=== PATIENT | male | born 1970 | race African-American/Black ===

== ENCOUNTER → 2018-02-09 | Day surgery (SDC) | payer OTHER ==
[2018-02-08 16:59] LABS: BASOPHILS # (AUTO) 0.1 (0.0-0.1); BASOPHILS % 0.8 % (0.0-1.0); EOSINOPHILS # (AUTO) 0.2 (0.0-0.4); EOSINOPHILS % 3.8 % (0.0-6.0); HEMATOCRIT 41.4 % (38.2-49.6); HEMOGLOBIN 13.3 g/dL (14.0-18.0); MEAN CORPUSCULAR HEMOGLOBIN 26.2 pg (28-32); MEAN CORPUSCULAR HGB CONC 32.1 g/dL (31-35); MEAN CORPUSCULAR VOLUME 81.5 fL (81-99); MONOCYTES # (AUTO) 0.7 (0.2-0.8); MONOCYTES % 10.5 % (4.4-11.3); NEUTROPHILS # (AUTO) 3.3 (2.1-6.9); NEUTROPHILS % 52.7 % (38.7-80.0); PLATELET COUNT 231 x10e3/uL (140-360); RED BLOOD COUNT 5.08 x10e6/uL (4.3-5.7)
[2018-02-08 17:19] LABS: ALANINE AMINOTRANSFERASE 17 IU/L (0-55); ALBUMIN 3.5 g/dL (3.5-5.0); ALBUMIN/GLOBULIN RATIO 0.9 (0.8-2.0); ALKALINE PHOSPHATASE 61 IU/L (40-150); ANION GAP 12.2 mmol/L (8-16); BLOOD UREA NITROGEN 11 mg/dL (7-26); BUN/CREATININE RATIO 13 (6-25); CALCIUM 9.2 mg/dL (8.4-10.2); CARBON DIOXIDE 28 mmol/L (22-29); CHLORIDE 104 mmol/L (98-107); CHOL/HDL RATIO 4.2 (3.9-4.7); CHOLESTEROL 198 MD/DL (0-199); CREATININE, SERUM 0.85 mg/dL (0.72-1.25); EST GLOMERULAR FILTRATION RATE > 60 ML/MIN (60-); GLUCOSE 92 mg/dL (74-118); HDL CHOLESTEROL 47 MG/DL (40-60); LDL CHOLESTEROL 135 MG/DL (60-130); POTASSIUM 4.2 mmol/L (3.5-5.1); SODIUM 140 mmol/L (136-145); TRIGLYCERIDES 79 MG/DL (0-149)
[~2018-02-09] VITALS: Ht 180.3 cm; Wt 123.4 kg
[2018-02-09 06:59] VITALS: BP 131/83
[2018-02-09 10:27] VITALS: BP 119/76
--- NOTE | 2018-02-12 08:51 | Operative Report ---
DATE OF PROCEDURE: February 09, 2018 INDICATIONS: Coronary artery disease with abnormal treadmill stress test. PROCEDURES PERFORMED 1. Left heart catheterization, selective coronary angiography. 2. Deployment of right wrist transradial band. COMPLICATIONS: None. RECOMMENDATIONS: Medical therapy. Access was obtained in the right radial artery. A 5-German sheath was placed. Diagnostic coronary angiogram revealed no angiographic coronary artery disease. Excellent flow in all vessels. No critical stenosis or occlusions were noted. Right wrist TR band applied. Patient discharged home same day. Job#: [id number]
== END | disposition home or self-care (01) ==
LOC: EDBD 08:00 → CATH LAB 09:04
PROVIDERS: ATTEND Internal Medicine Interventional Cardiology
DX: I25.119 Atherosclerotic heart disease of native coronary artery with unspecified angina pectoris (principal); I25.2 Old myocardial infarction; R94.39 Abnormal result of other cardiovascular function study; R00.1 Bradycardia, unspecified; Z01.812 Encounter for preprocedural laboratory examination; Z68.37 Body mass index [BMI] 37.0-37.9, adult; Z82.49 Family history of ischemic heart disease and other diseases of the circulatory system
CPT/HCPCS: 36140; 36415; 77002; 80053; 80061; 85025; 93458

== ENCOUNTER → 2018-03-27 | Outpatient (CLI) | payer OTHER ==
--- NOTE | 2018-03-27 19:52 | Diagnostic Imaging Report ---
PROCEDURE: CT CHEST WITHOUT CONTRAST CT scan of the chest WITHOUT intravenous contrast, using standard protocol. TECHNIQUE: The chest was scanned utilizing a multidetector helical scanner from the apex to the level of the adrenal glands. No IV contrast was administered per physician's request. Coronal and sagittal multiplanar reformations were obtained. COMPARISON: None. INDICATIONS: LEFT SIDE CHEST PRESSURE FOR 1 YEAR FINDINGS: Lines/tubes: None. Lungs and Airways: The lungs and airways are normal with no focal abnormality. No nodules, opacities, masses, or consolidation. Airways are clear, without endobronchial lesions. Pleura: The pleural spaces are clear. No effusion, or pneumothorax. Heart and mediastinum: The thyroid gland is normal. The heart size is normal. No pericardial effusion. Aorta is non-aneurysmal. Main pulmonary artery is normal in caliber. Lymph nodes: No mediastinal, hilar, or axillary adenopathy. Abdomen: Limited views of the upper abdomen show no abnormality within the visualized liver, spleen, pancreas, or kidneys. The adrenal glands are unremarkable. Bones and soft tissues: Mild degenerative disc changes in the thoracic spine. Mild bilateral gynecomastia, right greater than left. IMPRESSION: 1. Essentially unremarkable noncontrast chest CT. 2. Mild gynecomastia, right greater than left. Jose Ely M.D. Dictated by: Jose Ely M.D. on 03/27/2018 at 19:54 Electronically approved by: Jose Ely M.D. on 03/27/2018 at 19:54
== END ==
LOC: CT 13:18
PROVIDERS: ATTEND Internal Medicine Interventional Cardiology
DX: R07.9 Chest pain, unspecified (principal)
CPT/HCPCS: 71250

== ENCOUNTER 2018-09-13 16:45 | Emergency (ER) | payer OTHER ==
[~2018-09-13] VITALS: Ht 180.3 cm; Wt 127.0 kg
--- OUTSIDE RECORDS SUMMARY | 2018-09-13 16:47 | XMS REPORT ---
[facility] Address Unknown Phone Unavailable Care Team Providers Care Substation Operator Name Role Phone JESUS BERG Unavailable Unavailable Problems This patient has no known problems. Allergies, Adverse Reactions, Alerts This patient has no known allergies or adverse reactions. Medications This patient has no known medications. Results Test Description Test Time Test Comments Text Results Atomic Results Result Comments CT CHEST WO [place] [address] Patient Name: CHEYENNE GONZALEZ MR #: [id number] : 1970 Age/Sex: 47/M Req #: [id number] Adm Physician: Ordered by: JESUS BERG MD Report #: [id number] Location: CT Room/Bed: Procedure: [id number] CT/CT CHEST WO Exam Date: 03/27/18 Exam Time: 1425 REPORT STATUS: Signed PROCEDURE: CT CHEST WITHOUT CONTRAST CT scan of the chest WITHOUT intravenous contrast, using standard protocol. TECHNIQUE: The chest was scanned utilizing a multidetector helical scanner from the apex to the level of the adrenal glands. No IV contrast was administered per physician's request. Coronal and sagittal multiplanar reformations were obtained. COMPARISON: None. INDICATIONS: LEFT SIDE CHEST PRESSURE FOR 1 YEAR FINDINGS: Lines/tubes: None. Lungs and Airways: The lungs and airways are normal with no focal abnormality. No nodules, opacities, masses, or consolidation. Airways are clear, without endobronchial lesions. Pleura: The pleural spaces are clear. No effusion, or pneumothorax. Heart and mediastinum: The thyroid gland is normal. The heart size is normal. No pericardial effusion. Aorta is non-aneurysmal. Main pulmonary artery is normal in caliber. Lymph nodes: No mediastinal, hilar, or axillary adenopathy. Abdomen: Limited views of the upper abdomen show no abnormality within the visualized liver, spleen, pancreas, or kidneys. The adrenal glands are unremarkable. Bones and soft tissues: Mild degenerative disc changes in the thoracic spine. Mild bilateral gynecomastia, right greater than left. IMPRESSION: 1. Essentially unremarkable noncontrast chest CT. 2. Mild gynecomastia, right greater than left. Michael Lau M.D. Dictated by: Michael Lau M.D. on 03/27/2018 at 19:54 Electronically approved by: Michael Lau M.D. on 03/27/2018 at 19:54 Dictated By: MICHAEL LAU MD 53 Transcribed By: KOLTON on 03/27/181953 COPY TO: JESUS BERG MD
--- OUTSIDE RECORDS SUMMARY | 2018-09-13 16:47 | XMS REPORT | Clinical Summary ---
Author Author [facility] Address Unknown Phone Unavailable Care Team Providers Care Special Client Bus Driver Name Role Phone Asked, No Pcp PCP Unavailable Allergies No Known Allergies Medications End Date Status Medication Sig Dispensed Refills Start Date 04/15/2018 loratadine-pseudoepHEDrin Take 1 tablet 20 tablet 0 e (CLARITIN-D 12 HOUR) by mouth 8 5-120 mg tablet extended every 12 release 12 hr (twelve) hours for 10 days. Active Problems Not on file Encounters Care Team Description Date Type Specialty Salas Bell MD Viral upper respiratory tract infection (Primary Dx) 04/05/2018 Emergency Emergency Medicine - 04/06/2018 after 09/12/2017 Social History Date Tobacco Use Types Packs/Day Years Used Current Every Day Smoker Smokeless Tobacco: Current User Alcohol Use Drinks/Week oz/Week Comments Yes Sex Assigned at Date Recorded Not on file Industry Job Start Date Occupation Not on file Not on file Not on file Travel End Travel History Travel Start No recent travel history available. Last Filed Vital Signs Time Taken Vital Sign Reading 04/06/2018 12:07 AM CDT Blood Pressure 131/72 04/06/2018 12:07 AM CDT Pulse 71 04/06/2018 12:07 AM CDT Temperature 35.6 C (96.1 F) 04/06/2018 12:07 AM CDT Respiratory Rate 18 04/06/2018 12:07 AM CDT Oxygen Saturation 100% - Inhaled Oxygen - Concentration - Weight - 04/05/2018 10:52 PM CDT Height 180.3 cm (5' 11") - Body Mass Index - Plan of Treatment Not on file Results Not on fileafter 09/12/2017 Insurance Payer Benefit Subscriber ID Type Phone Address Plan / Group [employer] C[employer] OPEN xxxxxxxxxxx HMO ACCESS/NET WORK Advance Directives Patient has advance care planning documents on file. For more information, jose manuel aviles contact: Javy Lim [address] [place] [address]
[2018-09-13] MEDS ORDERED: NITROGLYCERIN 2% OINT 1 GM PKT TOP ONE (17:15)
[2018-09-13] MEDS ORDERED: ONDANSETRON HCL INJ 2 MG/ML VIAL IV PRN (17:15)
[2018-09-13] MEDS ORDERED: FAMOTIDINE 20 MG/2 ML VIAL IV ONE (17:15)
[2018-09-13] MEDS ORDERED: ASPIRIN 325 MG TAB PO ONE (17:15)
[2018-09-13] MEDS ORDERED: ASPIRIN 81 MG CHEW TAB PO ONE (17:15)
[2018-09-13 17:20] LABS: BASOPHILS % 0.5 % (0.0-1.0); EOSINOPHILS # (AUTO) 0.2 (0.0-0.4); EOSINOPHILS % 2.6 % (0.0-6.0); HEMATOCRIT 38.8 % (38.2-49.6); HEMOGLOBIN 12.4 g/dL (14.0-18.0); LYMPHOCYTES # (AUTO) 1.6 (1.0-3.2); LYMPHOCYTES % 26.9 % (18.0-39.1); MEAN CORPUSCULAR HEMOGLOBIN 26.4 pg (28-32); MEAN CORPUSCULAR VOLUME 82.7 fL (81-99); MONOCYTES # (AUTO) 0.5 (0.2-0.8); MONOCYTES % 7.9 % (4.4-11.3); NEUTROPHILS # (AUTO) 3.7 (2.1-6.9); NEUTROPHILS % 61.8 % (38.7-80.0); PLATELET COUNT 230 x10e3/uL (140-360); RED BLOOD COUNT 4.69 x10e6/uL (4.3-5.7); RED CELL DISTRIBUTION WIDTH 14.8 % (11.7-14.4)
--- NOTE | 2018-09-13 17:34 | Diagnostic Imaging Report ---
EXAMINATION: CHEST SINGLE (NOT PORTABLE) INDICATION: Chest pain COMPARISON: None FINDINGS: TUBES and LINES: None. LUNGS: Lungs are well inflated. Lungs are clear. There is no evidence of pneumonia or pulmonary edema. PLEURA: No pleural effusion or pneumothorax. HEART AND MEDIASTINUM: The cardiomediastinal silhouette is unremarkable. BONES AND SOFT TISSUES: No acute osseous lesion. Soft tissues are unremarkable. UPPER ABDOMEN: No free air under the diaphragm. IMPRESSION: No acute thoracic abnormality. Signed by: Dr. Stephen Biswas M.D. on 09/13/2018 5:31 PM
[2018-09-13 17:36] LABS: ALANINE AMINOTRANSFERASE 13 IU/L (0-55); ALBUMIN 3.8 g/dL (3.5-5.0); ALBUMIN/GLOBULIN RATIO 1.4 (0.8-2.0); ALKALINE PHOSPHATASE 65 IU/L (40-150); ANION GAP 14.6 mmol/L (8-16); BLOOD UREA NITROGEN 10 mg/dL (7-26); BUN/CREATININE RATIO 12 (6-25); CALCIUM 8.3 mg/dL (8.4-10.2); CARBON DIOXIDE 24 mmol/L (22-29); CHLORIDE 101 mmol/L (98-107); CREATINE KINASE 351 IU/L (30-200); CREATININE, SERUM 0.84 mg/dL (0.72-1.25); EST GLOMERULAR FILTRATION RATE > 60 ML/MIN (60-); GLUCOSE 110 mg/dL (74-118); POTASSIUM 3.6 mmol/L (3.5-5.1); SODIUM 136 mmol/L (136-145)
[2018-09-13 23:14] VITALS: BP 130/93
== END 2018-09-13 21:00 | disposition home or self-care (01) ==
LOC: ER 16:45
DX: R07.89 Other chest pain (principal)
CPT/HCPCS: 36415; 71045; 80053; 82550; 82553; 83735; 83880; 84484; 85025; 85379; 93005; 99284